=== PATIENT | male | born 1965 | race Caucasian/White ===

== ENCOUNTER 2018-04-25 08:55 | Emergency (ER) | payer OTHER ==
[~2018-04-25] VITALS: Ht 175.3 cm; Wt 82.9 kg
[2018-04-25 08:58] VITALS: Ht 175.3 cm; Wt 82.9 kg
[2018-04-25] MEDS ORDERED: NITROGLYCERIN 2% 1 GM OINT PKT TD STA (09:23)
[2018-04-25] MEDS ORDERED: ASPIRIN 81 MG TAB PO STA (09:23)
[2018-04-25] MEDS ORDERED: NITROGLYCERIN (SL) 0.4 MG TAB SL PRN (09:30)
[2018-04-25] MEDS ORDERED: ATOR20TA38 PO (10:20)
[2018-04-25] MEDS ORDERED: LOSA1TAB25 PO (10:21)
[2018-04-25] MEDS ORDERED: TERA2CAP3 PO (10:21)
[2018-04-25] MEDS ORDERED: ALDS PO (10:22)
[2018-04-25] MEDS ORDERED: CHOL500051 PO (10:24)
[2018-04-25 12:54] VITALS: BP 171/122; PULSE 86; RESP 16
--- NOTE | 2018-04-25 13:30 | ERD ---
ER Documentation Chief Complaint Chief Complaint pressure like pain @ mid chest area, radiates to the back since yesterday HPI Patient is a 52-year-old male with coronary disease and hypertension who presents with chest pain. He has chest pain and back pain which started yesterday at 1 PM. He felt palpitations as well. It was bilateral chest pain and it was constant. He does have a primary doctor. ROS All systems reviewed and are negative except as per history of present illness. Medications Home Meds Reported Medications Cholecalciferol (Vitamin D3) (Vitamin D3) 50,000 Unit Capsule, 52954 UNIT PO WEEKLY, CAP 04/25/18 Spironolactone* (Aldactone*) 5 Mg/Ml (COMPOUNDED) Susp, 12.5 MG PO DAILY for 30 Days, ML (COMPOUNDED) 04/25/18 Losartan-Hydrochlorothiazide (Losartan-HCTZ) 100-25 Mg Tab, 1 TAB PO DAILY, TAB 04/25/18 Terazosin Hcl* (Terazosin Hcl*) 2 Mg Capsule, 2 MG PO HS, CAP 04/25/18 Atorvastatin Calcium* (Atorvastatin Calcium*) 20 Mg Tablet, 20 MG PO QHS, #30 TAB 04/25/18 Allergies Allergies: Coded Allergies: No Known Allergy (Unverified , 04/25/18) PMhx/Soc Positive for coronary disease and hypertension FmHx Family History: No coronary disease Physical Exam Vitals Vital Signs Date Temp Pulse Resp B/P (MAP) Pulse Ox O2 O2 Flow FiO2 Time Delivery Rate 04/25/18 86 16 171/122 96 Room Air 12:54 (138) 04/25/18 96.5 80 17 166/113 97 Room Air 11:24 (130) Nasal Cannula 04/25/18 96.5 80 12 144/105 97 Room Air 10:26 (118) Nasal Cannula 04/25/18 96.5 100 18 168/109 97 Room Air 09:47 (128) 04/25/18 Nasal 2 09:47 Cannula 04/25/18 96.5 105 18 198/108 98 08:58 (138) Physical Exam Const: No acute distress Head: Atraumatic Eyes: Normal Conjunctiva ENT: Normal External Ears, Nose and Mouth. Neck: Full range of motion. No meningismus. Resp: Clear to auscultation bilaterally Cardio: Regular rate and rhythm, no murmurs Abd: Soft, non tender, non distended. Normal bowel sounds Skin: No petechiae or rashes Back: No midline or flank tenderness Ext: No cyanosis, or edema Neur: Awake and alert Psych: Normal Mood and Affect Result Diagram: 04/25/1847 04/25/1847 Results 24 hrs Laboratory Tests Test 04/25/18 09:47 White Blood Count 5.5 10^3/ul Red Blood Count 5.14 10^6/ul Hemoglobin 14.7 g/dl Hematocrit 44.0 % Mean Corpuscular Volume 85.6 fl Mean Corpuscular Hemoglobin 28.6 pg Mean Corpuscular Hemoglobin Concent 33.4 g/dl Red Cell Distribution Width 12.4 % Platelet Count 265 10^3/UL Mean Platelet Volume 8.7 fl Immature Granulocytes % 0.200 % Neutrophils % 53.1 % Lymphocytes % 29.4 % Monocytes % 7.8 % Eosinophils % 8.6 % Basophils % 0.9 % Nucleated Red Blood Cells % 0.0 /100WBC Immature Granulocytes # 0.010 10^3/ul Neutrophils # 2.9 10^3/ul Lymphocytes # 1.6 10^3/ul Monocytes # 0.4 10^3/ul Eosinophils # 0.5 10^3/ul Basophils # 0.1 10^3/ul Nucleated Red Blood Cells # 0.0 10^3/ul Sodium Level 142 mmol/L Potassium Level 3.5 mmol/L Chloride Level 104 mmol/L Carbon Dioxide Level 27 mmol/L Anion Gap 11 Blood Urea Nitrogen 12 mg/dl Creatinine 0.93 mg/dl Est Glomerular Filtrat Rate mL/min > 60 mL/min Glucose Level 94 mg/dl Calcium Level 9.6 mg/dl Troponin I < 0.012 ng/ml Current Medications Medications Dose Sig/Lan Start Time Status Last (Trade) Ordered Route PRN Stop Time Admin Dose Reason Admin Aspirin 162 mg ONCE STAT 04/25/18 DC 04/25/18 (Aspirin) PO 09:23 09:59 04/25/18 09:24 1 inch ONCE STAT 04/25/18 DC 04/25/18 Nitroglycerin TD 09:23 09:59 04/25/18 09:24 (Nitroglyceri n 2% Oint) 1 tab Q5M UP TO 3 04/25/18 DC 04/25/18 Nitroglycerin DOSES PRN 09:30 10:00 SL CHEST 04/25/18 13:06 (Nitroglyceri PAIN n (Sl Tab) 0.4 Mg) Procedures/MDM EKG read by me: Rate/Rhythm: Regular rate and rhythm at a normal rate Intervals: Normal Impression: No evidence of ischemia or arrhythmia Chest x-ray read by radiology. Smoking Cessation Therapy: Pt. was lectured for greater than 3 minutes on the health risks of continued smoking and the benefits of cessation. Patient is a 52-year-old male with cardiac risk factors who presents with chest pain. The patient was given aspirin and nitroglycerin empirically. He had elevated blood pressure. I doubt pneumonia, pneumothorax, pulmonary embolism, or aortic dissection. I am concerned for acute coronary syndrome. I want to admit him to the hospital I spoke with Dr. Crews at [facility] for transfer based on his insurance reasons. However the patient is now refusing transfer and wants to leave AGAINST MEDICAL ADVICE. He understands risks and benefits including myocardial infarction and . The patient can return for any worsening symptoms. Departure Diagnosis: Primary Impression: Chest pain Chest pain type: unspecified Qualified Codes: R07.9 - Chest pain, unspecified Condition: Fair Patient Instructions: Chest Pain, Uncertain Cause Referrals: Your doctor Additional Instructions: Call your primary care doctor TOMORROW for an appointment during the next 1-2 days.See the doctor sooner or return here if your condition worsens before your appointment time. MARICEL FERNANDO MD Apr 25, 2018 13:30
== END 2018-04-25 12:54 | disposition left against medical advice (07) ==
LOC: E/R 08:55
DX: R07.89 Other chest pain (principal)
CPT/HCPCS: 36415; 71045; 80048; 84484; 85025; 93005; Z7502; Z7610